=== PATIENT | female | born 1990 | race Caucasian/White ===

== ENCOUNTER 2021-01-23 12:16 | Emergency (ER) | payer OTHER, SELFPAY ==
--- NOTE | ~2021-01-23 | XR_ITS ---
EXAMINATION: XR HAND, RIGHT CLINICAL INFORMATION: Pain status post laceration COMPARISON: None TECHNIQUE: PA, lateral, and oblique views of the right hand. FINDINGS: The bones and soft tissues are normal. No fracture. Alignment is anatomic. Joint spaces are maintained. No erosions or soft tissue calcifications. XR/XR hand RT min 3V IMPRESSION: No fracture or evidence for any radiopaque foreign body.
[2021-01-23 13:49] VITALS: BP 124/55; PULSE 72; RESP 16; TEMP 36.9; O2SAT 100; BMI 24.7
[2021-01-23] MEDS: oxyCODONE HCl Immed Release 5 MG TABLET PO (14:04)
[2021-01-23] MEDS: Diphth,Pertus(ACell),Tet Adult 0.5 ML SYRINGE IM (14:05)
[2021-01-23] MEDS: Lidocaine HCl 1 % MPF 5 ML VIAL SUBCUT (14:05)
--- NOTE | 2021-01-23 14:36 | ED_ITS ---
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 She is unsure she is up-to-date on tetanus. She denies any other injury complaints or concerns at this time. Onset (ago): minute(s) (Prior to arrival) Extremity Location: right: hand (Ring and little finger) Place: work Patient tetanus UTD: No Context: accidental Associated symptoms: pain Treatments prior to arrival: cold therapy and bandage Related Data Previous Rx's Medication Instructions Recorded ibuprofen 800 mg tablet 800 mg PO Q8H PRN #14 tab 01/23/21 oxycodone-acetaminophen 5 mg-325 1 tab PO Q6H PRN #10 tab 01/23/21 mg tablet (Percocet) Allergies Allergy/AdvReac Type Severity Reaction Status Date / Time No Known Allergies Allergy Verified 01/23/21 13:46 Review of Systems Review of Systems: Constitutional : No Fever, No Chills, Cardiovascular : No Chest Pain, No SOB Respiratory : No Dyspnea Gastrointestinal : No abdominal pain Musculoskeletal : No Joint Swelling Skin : positive skin laceration, No Foreign bodies, No rash, No surrounding erythema Neuro : No Weakness, No Numbness/tingling Psych : No SI/HI/thoughts of self injury Yes all other systems are reviewed and are negative PMFSH Past Medical History Attestation statement: The following information was validated with the patient. Medical History No known health problems Social History Social History Advance Directives: No Advance Directives Information Provided: Yes Patient : No Physical Exam Vital Signs: Vital Signs: Last Vital Signs Temp 98.4 F 01/23/21 13:49 Pulse 72 01/23/21 13:49 Resp 16 01/23/21 13:49 BP 124/55 L 01/23/21 13:49 Pulse Ox 100 01/23/21 13:49 Body Mass Index 24.7 vital signs have been reviewed as normal and appeared to be correct. Blood pressure normal. Heart rate normal. Respiration rate normal. Temperature normal. Oxygen saturation normal. Appearance: Alert. Oriented X3. No acute distress. Head: Normal external exam. Normocephalic. Atraumatic. Eyes: PERRLA. EOMI. Conjunctiva and sclera normal. Eyelids normal. ENT: Pharynx normal. Uvula midline. Moist mucous membranes. Neck: Normal inspection. Neck supple. FROM. No meningeal signs. CVS: Normal heart rate and rhythm.Pulses normal throughout. Respiratory: No respiratory distress. Painless inspiration. Back: Full range of motion noted. Skin: Skin warm and dry. Normal skin color. Normal skin turgor. No rashes/lesions/lacerations noted. Extremities: To right hand ring finger patient has a superficial abrasion at the distal aspect of the finger and a subungual hematoma which is already draining. Patient also has a 2 cm intermediate laceration to right hand little finger that is linear. No foreign bodies. Patient has full range of motion of all fingers/hand and wrist joint. No ligamentous laxity noted. Otherwise all other extremities exhibit normal range of motion and nontender. Neuro: Oriented X 3. No motor deficit. No sensory deficit. Reflexes normal. Normal steady gait. No focal neuro deficits noted. Vascular: + radial pulses Normal cap refill. No cyanosis noted to upper extremity nails Course Course Course Narrative: 30-year-old female presenting to the ED after work related injury sustaining abrasion to right hand ring finger and laceration to right hand little finger. Patient not up-to-date on tetanus. X-ray obtained and negative for any acute processes. Tetanus updated at this time. Patient medicated with 5 mg of oxycodone. Patient is now status post laceration repair with [address] Patient tolerated procedure well. No complications. Will DC home with instructions to follow-up with [facility] and 10 days for suture removal. Patient understands agrees with this plan. MDM - Wound/Laceration Medical Records Attestation: I reviewed the patient's medical records. Imaging Data Right hand x-ray: Attestation: I personally reviewed and interpreted this imaging study as follows: Radiologist's impression: FINDINGS: The bones and soft tissues are normal. No fracture. Alignment is anatomic. Joint spaces are maintained. No erosions or soft tissue calcifications.? XR/XR hand RT min 3V IMPRESSION: No fracture or evidence for any radiopaque foreign body. Procedures Laceration Laceration 1: Site: hand Side (If applicable): right Size (cm): 2 Description: linear, irregular and clean Depth: simple, single layer Local Anesthetic: lidocaine 1% Amount of anesthesia used (mL): 3 Pre-repair: wound explored, irrigated extensively and wound margins revise d Skin layer closed with: nylon Size (cm): 4-0 Number of sutures: 6 Discharge Plan Discharge Clinical Impression: Laceration, Encounter for assessment of work-related causation of injury, Abrasion, Hand sprain Patient Disposition: Home, Self-Care Instructions: Sprain (ED), Finger Laceration (ED), Return to Work Instructions (ED) Prescriptions: New ibuprofen 800 mg tablet 800 mg PO Q8H PRN (Reason: pain) Qty: 14 RF: 0 oxycodone-acetaminophen [Percocet] 5-325 mg tablet 1 tab PO Q6H PRN (Reason: pain) Qty: 10 RF: 0 Referrals: [facility] [Provider Group] - 01/26/21 Lizeth Herrera PA [Emergency Midlevel Provider] - 10 days (for suture removal) Physician,None [Primary Care Provider] - 2 days (your pcp) Stand Alone Forms: Work/School Release Print Language: Norwegian
== END 2021-01-23 15:23 | disposition home or self-care (01) ==
PROVIDERS: Emergency Provider Internal Medicine
DX: S63.91XA Sprain of unspecified part of right wrist and hand, initial encounter (principal); S61.216A Laceration without foreign body of right little finger without damage to nail, initial encounter; S60.410A Abrasion of right index finger, initial encounter; S60.414A Abrasion of right ring finger, initial encounter; W20.8XXA Other cause of strike by thrown, projected or falling object, initial encounter; Y93.89 Activity, other specified; Y92.813 Airplane as the place of occurrence of the external cause; Y99.0 Civilian activity done for income or pay
CPT/HCPCS: 12041; 73130; 90471; 90715; 99283; 99284

== ENCOUNTER → 2021-02-02 15:27 | Outpatient (BNVA) | payer OTHER, SELFPAY | PROVIDERS: Visit Provider Physician Assistant Medical | DX: S61.216A Laceration without foreign body of right little finger without damage to nail, initial encounter (principal); W31.9XXA Contact with unspecified machinery, initial encounter | CPT/HCPCS: 99202; 99212 ==

== ENCOUNTER → 2025-01-31 23:06 | Outpatient (BNV) | payer BC, SELFPAY | PROVIDERS: Visit Provider Student in an Organized Health Care Education/Training Program | DX: R07.89 Other chest pain (principal) | CPT/HCPCS: 71046 ==

== ENCOUNTER 2025-01-31 23:15 | Emergency (ER) | payer BC, SELFPAY ==
--- NOTE | 2025-01-31 | ECG_ITS ---
Test Reason : CHEST PAIN Blood Pressure : */* mmHG Vent. Rate : 93 BPM Atrial Rate : 93 BPM P-R Int : 216 ms QRS Dur : 90 ms QT Int : 374 ms P-R-T Axes : 34 -15 26 degrees QTcB Int : 465 ms Sinus rhythm with 1st degree A-V block Otherwise normal ECG No previous ECGs available Referred By: Generic ED Physician Electronically Signed By: ABELARDO QUARLES
--- NOTE | ~2025-01-31 | XR_ITS ---
CLINICAL HISTORY: int cp 2 view chest x-ray Comparison: None provided Findings: The lungs are clear. Normal size heart. No acute fracture. IMPRESSION: 1. No acute findings. This document has been electronically signed by: Jonathon Rendon MD on 02/01/2025 00:36:03
[2025-01-31 23:38] VITALS: BP 121/72; PULSE 87; RESP 20; TEMP 36.6; O2SAT 98; BMI 28.4
[2025-01-31 23:40] LABS: Hematocrit 37.2 % (37.0-47.0); Hemoglobin 13.4 g/dl (12.0-16.0); Imm Gran Abs Auto 0.02 X10*3/uL (0.00-0.03); Imm Gran Pct Auto 0.2 % (0.0-0.4); Lymphocytes Absolute Auto 4.2 X10*3/uL (1.2-4.9); MANUAL DIFF FLAG NO; Mean Corpuscular HGB Conc 36.0 g/dl (31.0-35.0); Mean Corpuscular Hemoglobin 30.5 pg (27.0-33.0); Mean Corpuscular Volume 84.7 fL (80.0-98.0); NRBC Abs Auto 0.000 X10*3/uL (0.0-0.012); NRBC Pct Auto 0.0 /100WBC (0.0-0.2); Platelet Count 276 X10*3/uL (160-400); Red Blood Count 4.39 X10*6/uL (4.20-5.50); White Blood Count 9.4 X10*3/uL (4.8-10.8)
[2025-01-31 23:57] LABS: Alanine Aminotransferase 27 U/L (0-31); Albumin Level 4.8 g/dL (3.5-5.0); Alkaline Phosphatase 87 U/L (39-117); Anion Gap 17 (12-20); Aspartate Amino Transferase 26 U/L (5-31); Blood Urea Nitrogen 16 mg/dL (9-16); Calcium 9.9 mg/dL (8.4-10.2); Carbon Dioxide 22 mmol/L (22-29); Chloride 104 mmol/L (96-108); Creatinine Clr Calc Pharmacy 116.9; Estimated Glomerular Filt Rate > 60; Magnesium 1.9 mg/dL (1.6-2.6); Potassium 3.7 mmol/L (3.3-5.1); Sodium 139 mmol/L (135-145); Total Protein 7.6 g/dL (6.5-8.0)
[2025-02-01 00:04] LABS: Troponin-I High Sensitivity < 2.7 ng/L (<3.5-17.0)
--- OUTSIDE RECORDS SUMMARY | 2025-02-01 00:53 | XMS_ITS | Clinical Summary ---
Author Organization [facility] Address [address] [place] [address] Care Team Providers Care Pick Up Driver Name Role Phone Unavailable Primary Care Provider Unavailabl e Allergies No known active allergies Medications No known medications Active Problems No known active problems Social History Tobacco Use Types Packs/Day Years Used Date Smoking Tobacco: Every Day Alcohol Use Standard Drinks/Week Comments Not Asked 0 (1 standard drink = 0.6 oz pur e alcohol) Comments No Sex and Gender Information Value Date Recorded Sex Assigned at Not on file Legal Sex Female 5:03 PM EST Gender Identity Not on file Sexual Orientation Not on file Last Filed Vital Signs Vital Sign Reading Time Taken Comments Blood Pressure 119/61 05/02/2016 5:27 PM EST Pulse 69 05/02/2016 5:27 PM EST Temperature 37.2 C (98.9 F) 05/02/2016 5:27 PM EST Respiratory Rate - - Oxygen Saturation - - Inhaled Oxygen Concentration - - Weight - - Height - - Body Mass Index - - Plan of Treatment Health Maintenance Due Date Last Done Comments Hepatitis C Screening 1992 Pap Smear 2008 DTaP/Tdap/Td (1 - Tdap) 2010 Hep B (1 of 3 - 19+ 3-dose series) 2011 COVID-19 Vaccine ( - 2023-2 5 season) 2024 Influenza (#1) 2025 Zoster (Shingrix) (1 of 2) 2042 HPV Vaccine (No Doses Required) Completed Hep A Aged Out No longer eligi ble based on patient's age to complete this topic Hib Aged Out No longer eligi ble based on patient's age to complete this topic Meningococcal ACWY Aged Out No longer eligible based on patient's age to complete this topic Pneumococcal Aged Out No longer eligi ble based on patient's age to complete this topic Insurance [employer]
--- NOTE | 2025-02-01 01:34 | ED_ITS ---
HPI - General Adult General Chief complaint: General Medical Stated complaint: Chest Pain Time Seen by Provider: 02/01/25 01:34 History of Present Illness ED Provider: Marilee MACK narrative: The patient is a previously healthy 34-year-old female who is on no medications. The patient says that for the last 6 months she has been having episodes of pain in her left chest that are very bothersome but infrequent. She says that she gets episodes where she feels a very sharp intense pain in her left chest near her left breast that is worse with breathing. She says that ultimately if she takes a big breath she has a sensation of a release or a pop in her chest and then she feels better. She says that she has been experiencing symptoms like this approximately once a week for several months. Today she had 2 episodes in 1 day and so she came to the emergency room for evaluation. She was therefore asymptomatic when she arrived at the emergency room and remained asymptomatic while waiting to be seen. No pain or swelling in her legs. She has no history of blood clots. She is on no hormonal therapy. She takes no prescription medications. She vapes. She has had no fever, sweats, chills. Related Data Previous Rx's ?Medication ?Instructions ?Recorded ibuprofen 800 mg tablet 800 mg PO Q8H PRN pain #14 t abs 01/23/21 oxycodone-acetaminophen 5 mg-325 1 tab PO Q6H PRN pain #10 tabs 01/23/21 mg tablet (Percocet) Allergies Allergy/AdvReac Type Severity Reaction Status Date / Time No Known Allergies Allergy Verified 01/31/25 23:53 Review of Systems 2 Review of Systems: Yes all other systems are reviewed and are negative [facility] Past Medical History Medical History No known health problems Social History Social History Smoked in Last 30 Days: Yes Use of substances other than those prescribed or required for medical reasons: No Advance Directives: No Advance Directives Information Provided: Yes Physical Exam ED Vital Signs: Vital Signs - 24 hr 01/31/25 23:38 02/01/25 01:57 Temperature 97.8 F 98 F Pulse Rate 87 83 Respiratory Rate 20 16 Blood Pressure 121/72 109/66 Pulse Oximetry 98 95 Oxygen Delivery Method Room Air Room Air BMI result Body Mass Index 28.4 Const Other: The patient is a 34-year-old female who had fallen asleep while waiting to be seen. She seemed to be sleeping comfortably. She awoke easily with verbal stimulation. She looked comfortable when she woke up. Orientation/consciousness: patient oriented x3 HENMT Other: The face is symmetrical. Mucous membranes moist. Eyes Other: Pupils are round equal, conjunctivae are clear, extraocular movements intact Neck Neck: Yes normal visual inspection, Yes full ROM and Yes no lymphadenopathy Chest Other: I was unable to identify any site of chest wall tenderness. Resp Effort & Inspection: normal respiratory effort Auscultation: clear to auscultation bilaterally Cardio Rate: regular rate Rhythm: regular rhythm Heart sounds: S1 normal heart sound present and S2 normal heart sound present GI Other: Abdomen is soft and nontender Skin Other: The skin is dry and unremarkable Neuro General: patient oriented x3, gait normal, tone normal, moves all extremities, no focal motor deficits and CN's II-XI intact bilaterally Extrem Other: There is no calf swelling or tenderness. No asymmetry. No peripheral edema. Medical Decision Making Medical Decision Making MDM Narrative: the patient is a 34-year-old female who presents to the emergency room describing intermittent episodes of unusual left-sided chest pain. She describes episodes of feeling pain with the breathing in a localized spot on her left chest. The episode begins without any particular prodrome. The pain becomes fairly intense fairly quickly. Ultimately she takes a very big breath and feels a sensation of something releasing in her chest and then the pain resolves. These episodes are brief, lasting less than 5 minutes. She has been having these episodes approximately once a week for a few months. Today she had 2 such episodes and came to the emergency room. She was asymptomatic at the time that she arrived in the emergency room and she remained asymptomatic. Her vital signs are unremarkable. She is PERC negative. Testing in the emergency room today including basic labs, EKG, and chest x-ray, are unremarkable. I explained to the patient that my suspicion for an acutely dangerous process is very low. Perhaps this is some sort of unusual chest wall syndrome. In any event she is currently asymptomatic and may be discharged. She should follow up with her PCP to discuss these episodes further. Lab Data 01/31/25 23:34 01/31/25 23:34 Labs: Lab Results 01/31/25 Range/Units 23:34 WBC 9.4 (4.8-10.8) X10*3/uL RBC 4.39 (4.20-5.50) X10*6/uL Hgb 13.4 (12.0-16.0) g/dl Hct 37.2 (37.0-47.0) % MCV 84.7 (80.0-98.0) fL MCH 30.5 (27.0-33.0) pg MCHC 36.0 H (31.0-35.0) g/dl RDW 11.9 (11.0-16.0) % Plt Count 276 (160-400) X10*3/uL MPV 8.4 L (9.4-12.3) fL Immature Gran % (Auto) 0.2 (0.0-0.4) % Neut % (Auto) 46.3 (45-73) % Lymph % (Auto) 45.0 H (20-40) % Weston % (Auto) 6.6 (2-11) % Eos % (Auto) 1.4 (0-4) % Baso % (Auto) 0.5 (0-2) % Lymph # (Auto) 4.2 (1.2-4.9) X10*3/uL Weston # (Auto) 0.6 (0.1-1.2) X10*3/uL Eos # (Auto) 0.1 (0.0-0.4) X10*3/uL Baso # (Auto) 0.1 (0.0-0.2) X10*3/uL Abs Immat Gran (auto) 0.02 (0.00-0.03) X10*3/uL Absolute Neuts (auto) 4.4 (2.0-8.3) x10*3/uL Absolute Nucleated RBC 0.000 (0.0-0.012) X10*3/uL Nucleated RBC % (auto) 0.0 (0.0-0.2) /100WBC Sodium 139 (135-145) mmol/L Potassium 3.7 (3.3-5.1) mmol/L Chloride 104 (96-108) mmol/L Carbon Dioxide 22 (22-29) mmol/L Anion Gap 17 (12-20) BUN 16 (9-16) mg/dL Creatinine 0.66 (0.5-1.4) mg/dL Estim Creat Clear Calc 116.9 Estimated GFR > 60 Random Glucose 93 (60-115) mg/dL Calcium 9.9 (8.4-10.2) mg/dL Magnesium 1.9 (1.6-2.6) mg/dL Total Bilirubin 0.7 (0.0-1.0) mg/dL AST 26 (5-31) U/L ALT 27 (0-31) U/L Alkaline Phosphatase 87 (39-117) U/L Troponin I High Sens < 2.7 (<3.5-17.0) ng/L Total Protein 7.6 (6.5-8.0) g/dL Albumin 4.8 (3.5-5.0) g/dL Discharge Plan Discharge Clinical Impression: Chest pain Patient Disposition: Home, Self-Care Additional Instructions: Your testing in the emergency room today is very reassuring. Based on your description of these episodes I think that the pain is probably more some kind of musculoskeletal pain related to the structures of your chest wall rather than anymore internal problem. Please make a follow up appointment with your regular doctor to discuss these episodes further. If at any point you feel significantly worse, especially if you feel very short of breath, return to the emergency room for further evaluation. Prescriptions: No Action ibuprofen 800 mg tablet 800 mg PO Q8H PRN (Reason: pain) Qty: 14 0RF oxycodone-acetaminophen [Percocet] 5-325 mg tablet 1 tab PO Q6H PRN (Reason: pain) Qty: 10 0RF Referrals: [facility] [Provider Group] Interventions: ED Discharge Assessment Last Done: 02/01/25 01:57 Discharge Date/Time: 02/01/25 01:58 Print Language: Portuguese
[2025-02-01 01:57] VITALS: BP 109/66; PULSE 83; RESP 16; TEMP 36.6; O2SAT 95
== END 2025-02-01 01:58 | disposition home or self-care (01) ==
PROVIDERS: Emergency Provider Emergency Medicine
DX: R07.9 Chest pain, unspecified (principal)
CPT/HCPCS: 36415; 71046; 80053; 83735; 84484; 85025; 93005; 99283; 99284

== ENCOUNTER → 2025-01-31 23:25 | Outpatient (BNV) | payer BC, SELFPAY | PROVIDERS: Emergency Provider Emergency Medicine; Visit Provider Internal Medicine | DX: I44.0 Atrioventricular block, first degree (principal) | CPT/HCPCS: 93010 ==